=== PATIENT | female | born 1965 | race Caucasian/White ===

== ENCOUNTER 2017-05-13 05:57 | Day surgery (SDC) | payer BC ==
[2017-05-13] MEDS ORDERED: Ondansetron 4 MG/2 ML SDV IVPUSH PRN (06:47)
[2017-05-13] MEDS ORDERED: Ondansetron 4 MG/2 ML SDV ONE ×2 (06:52→08:35)
[2017-05-13] MEDS: Ondansetron 4 MG/2 ML SDV IVPUSH PRN ×2 (06:54→22:00)
[2017-05-13] MEDS ORDERED: Bupivacaine 0.5%/EPINEPHrine 1:200,000 50 ML MDV ONE (06:58)
[2017-05-13] MEDS ORDERED: HYDROmorphone/Normal Saline 15 MG/30 ML PCA IV PRN (07:00)
[2017-05-13] MEDS ORDERED: Scopolamine 1.5 MG Transdermal Patch TOP ONE (07:00)
[2017-05-13] MEDS ORDERED: Dextrose 5%-Lactated Ringers 1,000 ML IV SCH (07:00)
[2017-05-13] MEDS ORDERED: Levofloxacin/Dextrose 5%-Water 500 MG in Premix Bag 1 BAG IV ONE (07:00)
[2017-05-13] MEDS ORDERED: Naloxone 0.4 MG/ML SDV IV PRN (07:00)
[2017-05-13] MEDS ORDERED: Rocuronium 50 MG/5 ML Vial ONE (08:35)
[2017-05-13] MEDS ORDERED: Glycopyrrolate 0.2 MG/ML 5 ML MDV ONE (08:35)
[2017-05-13] MEDS ORDERED: Succinylcholine 200 MG/10 ML MDV ONE (08:35)
[2017-05-13] MEDS ORDERED: Neostigmine Methylsulfate 1 MG/ML 5 ML Syringe ONE (08:35)
[2017-05-13] MEDS ORDERED: Propofol 200 MG/20 ML SDV ONE (08:35)
[2017-05-13] MEDS ORDERED: Ketorolac 60 MG/2 ML SDV ONE (08:35)
[2017-05-13] MEDS ORDERED: fentaNYL 100 MCG/2 ML SDV ONE ×2 (08:36→09:29)
[2017-05-13] MEDS ORDERED: Midazolam 1 MG/ML 2 ML SDV ONE (08:36)
[2017-05-13] MEDS ORDERED: Lidocaine 1% 2 ML ONE (08:36)
[2017-05-13] MEDS ORDERED: Metoclopramide 10 MG/2 ML SDV IVPUSH ONE (10:26)
[2017-05-13] MEDS ORDERED: hydrOXYzine HCl 100 MG/2 ML SDV IM ONE (10:29)
[2017-05-13] MEDS ORDERED: Pantoprazole 40 MG Vial IV SCH (13:00)
[2017-05-13] MEDS: VERIFY SCOP PATCH TOP SCH (13:15)
[2017-05-13] MEDS: Acetaminophen/HYDROcodone 325-5 MG Tab PO PRN ×2 (17:46→22:00)
[2017-05-13] MEDS ORDERED: Ondansetron 4 MG Tab.DIS PO PRN (22:05)
[2017-05-14] MEDS: Acetaminophen/HYDROcodone 325-5 MG Tab PO PRN ×2 (02:33→07:07)
[2017-05-14] MEDS ORDERED: Levofloxacin/Dextrose 5%-Water 500 MG in Premix Bag 1 BAG IV ONE (06:00)
[2017-05-14 07:03] VITALS: BP 124/74
[2017-05-14] MEDS ORDERED: Levofloxacin 500 MG Tab PO SCH (07:30)
[2017-05-14] MEDS: VERIFY SCOP PATCH TOP SCH (08:37)
--- NOTE | 2017-05-15 10:53 | DISCH ---
FINAL DIAGNOSES: 1. Biliary dyskinesia. 2. Umbilical hernia. 3. Incisional hernia. 4. Hyperlipidemia. OPERATIVE PROCEDURE: This was done on 05/13/2017, diagnostic laparoscopy with: 1. Laparoscopic cholecystectomy. 2. Umbilical hernia repair. 3. Reinforcement of the deserosalized portion of the duodenum. HOSPITAL COURSE: This is a 51-year-old female presenting with ongoing biliary colic type symptoms. The CCK stimulated HIDA scan was obtained, which showed a somewhat below normal ejection fraction, along with CCK causing a fairly exact reproduction of her pain. Given this, she underwent a laparoscopic cholecystectomy. The gallbladder was noted to have some adherence to the duodenum, and this was reinforced with some fibrin sealant after takedown of those adhesions. Otherwise, the gallbladder had some sludge within it, as well as gross cholesterolosis. The patient had an umbilical hernia, which was present and was repaired concurrently. There was a larger incisional hernia that would require a mesh-type repair, and given the open gallbladder case, this was deferred. Otherwise, the patient is tolerating diet. She had a little bit of nausea, which was treated with some Zofran. She will be discharged home today. We will continue her home medications plus [place] 5/325 mg 1 to 2 tabs q.4 hours p.r.n. pain, #50; Zofran 4 mg ODT q.4 hours p.r.n. nausea, #20 with one refill. Follow up with Dr. Ma at the [facility] on 05/24/2017.
--- NOTE | 2017-05-15 13:47 | OR ---
DATE OF PROCEDURE: 05/13/2017 PREOPERATIVE DIAGNOSIS: Biliary dyskinesia. POSTOPERATIVE DIAGNOSES: 1. Biliary dyskinesia. 2. Umbilical hernia. 3. Duodenum adherent to gallbladder neck. OPERATIVE PROCEDURES: Diagnostic laparoscopy with: 1. Laparoscopic cholecystectomy (08739). 2. Laparoscopic umbilical hernia repair (46884). 3. Closure of deserosalized portion of duodenum (59277). ANESTHESIA: General. INDICATIONS FOR PROCEDURE: This is a 51-year-old female presenting with recurrent episodes of symptoms suggestive of biliary colic. As part of the workup, the patient underwent a CCK- stimulated HIDA scan that showed a somewhat below-normal ejection fraction, along with reproduction of the patient's symptoms with the CCK injection. Given this, she is to undergo a cholecystectomy. Potential risks of the procedure including bleeding, infection, injury to underlying viscera, possible persistent symptoms postoperatively were all reviewed, and the patient wishes to proceed. DETAILS OF PROCEDURE: The patient was taken to the operating room, and after general endotracheal anesthesia was induced, the abdomen was prepped and draped. Beginning in the right lower mid abdomen, a transverse incision was made and the peritoneal cavity entered under direct vision with an Optiview trocar. The patient was noted to have a previous upper midline incision, so the midline approach in terms of entrance into the abdomen was avoided. Upon entering the peritoneal cavity, the patient was noted to have quite a bit in the way of adhesions in the midline between the omentum. She was noted to have an umbilical hernia as well as a somewhat larger incisional hernia located in the lower aspect of the upper midline incision. Following this, 12 mm trocars were placed in the epigastrium and right mid abdomen after takedown of some adhesions obscuring the upper right abdomen. The gallbladder was noted to be quite thickened and distended. As one dissected down on the gallbladder with Harmonic scalpel, it became evident that the gallbladder neck was densely adherent to the duodenum, likely related to chronic inflammatory changes. This was gradually dissected free. Roughly 1 cm segment of duodenum was deserosalized during the course of that dissection. As one dissected further down, the gallbladder neck/cystic duct junction became well delineated, as was the cystic artery. Both structures were clipped 3 times proximally and once distally and divided. The gallbladder was then dissected off the gallbladder bed using Harmonic scalpel. Following this, the gallbladder was removed through the epigastric site. It was inspected. Small amount of sludge was present, along with cholesterolosis of the gallbladder mucosa visualized upon opening the gallbladder. The area of deserosalization of the duodenum was then closed with a hizeud-ry-jergh stitch of 3-0 Vicryl seromuscular stitch and then reinforced with 4 mL of fibrin sealant followed by an omental patch being placed over the area of the deserosalization and fibrin sealant placement. Attention was then taken to the umbilical hernia. The hernia was reduced by external pressure, and the fatty and peritoneal tissue occupying the hernia was then excised using Harmonic scalpel. A small transverse incision overlying the umbilicus was then made and cone placed for the endoscopic suture closure device. This was then closed with a total of 3 Vicryl sutures placed with closure in the transverse orientation. Once these were in place, the cone was removed and the sutures subsequently tied, thus closing the hernia. At this point, no further problems were noted. Drain was not felt to be necessary. Trocars were sequentially removed and fascia at the 12 mm sites were each closed with 0 Vicryl stitch at the fascia level and skin with a 4-0 Vicryl skin stitch. Dressing was applied. The patient was taken to the recovery room in a satisfactory condition. Antonio Ma MD /[id number]
== END 2017-05-14 09:45 | disposition home or self-care (01) ==
LOC: JP.SDS 05:57 → JP.2SS 10:00 → JP.SDS 05-14 09:45
PROVIDERS: ATTEND Surgery
DX: K81.1 Chronic cholecystitis (principal); K42.9 Umbilical hernia without obstruction or gangrene; K21.9 Gastro-esophageal reflux disease without esophagitis; E78.5 Hyperlipidemia, unspecified; E55.9 Vitamin D deficiency, unspecified; F43.23 Adjustment disorder with mixed anxiety and depressed mood; E66.9 Obesity, unspecified; Z88.1 Allergy status to other antibiotic agents; Z90.49 Acquired absence of other specified parts of digestive tract; Z98.890 Other specified postprocedural states; Z68.30 Body mass index [BMI] 30.0-30.9, adult; Z90.710 Acquired absence of both cervix and uterus; Z98.51 Tubal ligation status; Z79.82 Long term (current) use of aspirin; Z79.899 Other long term (current) drug therapy
CPT/HCPCS: 36415; 44602; 47562; 49652; 82247; 84075; 85027; 88304; A9270; C9113; J0131; J0330; J1170; J1885; J1956; J2250; J2405; J2704; J2710; J2765; J3010; J3410; J7042

== ENCOUNTER 2019-06-25 11:04 | Emergency (ER) | payer BC, OTHER ==
[2019-06-25] MEDS ORDERED: fentaNYL 100 MCG/2 ML SDV NASBOTH ONE (11:10)
[2019-06-25 11:19] VITALS: BP 144/86; PULSE 83
--- NOTE | 2019-06-25 11:23 | EDM.PDOC ---
ED HPI GENERAL MEDICAL PROBLEM - General Chief Complaint: Lower Extremity Injury/Pain Stated Complaint: FELL AND HURT RT KNEE Time Seen by Provider: 06/25/19 11:18 Source of Information: Reports: Patient, RN Notes Reviewed History Limitations: Reports: No Limitations - History of Present Illness INITIAL COMMENTS - FREE TEXT/NARRATIVE: 53-year-old female presents emergency department today following a fall at work she believes she just tripped there was no obstruction and no wet floor lost her balance and landed on her right knee, she is in significant pain and cannot bear weight Right Knee Pain Score (Numeric/FACES): 10 - Related Data Allergies Allergy/AdvReac Type Severity Reaction Status Date / Time erythromycin base Allergy Severe Anaphylactic Verified 06/25/19 11:07 [Erythromycin Base] Shock cefotetan Allergy Rash Verified 06/25/19 11:07 doxycycline Allergy Liver Verified 06/25/19 11:07 Problems Home Meds: Home Meds Cholecalciferol (Vitamin D3) [Vitamin D] 5,000 unit PO DAILY 12/17/14 [History] Vitamin B Complex [B Complex] 1 each PO DAILY 12/17/14 [History] Past Medical History Cardiovascular History: Reports: Heart Murmur Genitourinary History: Reports: Pyelonephritis Musculoskeletal History: Reports: Fracture Other Musculoskeletal History: fx R ankle - Infectious Disease History Infectious Disease History: Reports: Chicken Pox, Influenza, Measles - Past Surgical History Head Surgeries/Procedures: Reports: None Other GI Surgeries/Procedures: Lap Jung Female Surgical History: Reports: Hysterectomy Other Musculoskeletal Surgeries/Procedures:: R index finger pinning, temporary pin removed ` Social & Family History - Family History Cardiac: Reports: Hypertension Other Family History: diabetis father and brother - Tobacco Use Smoking Status *Q: Never Smoker Second Hand Smoke Exposure: No - Caffeine Use Caffeine Use: Reports: Soda - Alcohol Use Days Per Week of Alcohol Use: 2 Number of Drinks Per Day: 2 Total Drinks Per Week: 4 - Recreational Drug Use Recreational Drug Use: No Review of Systems - Review of Systems Review Of Systems: See Below Constitutional: Reports: No Symptoms Musculoskeletal: Reports: Joint Pain (Knee pain right) Skin: Reports: Bruising ED EXAM, GENERAL - Physical Exam Exam: See Below Free Text/Narrative:: examination the right knee I do appreciate some bruising over the patella very tender to the touch Exam Limited By: No Limitations General Appearance: Alert, Mild Distress Respiratory/Chest: No Respiratory Distress Course - Vital Signs Last Recorded V/S: Last Vital Signs Temp 96.4 F 06/25/19 11:19 Pulse 83 06/25/19 11:19 Resp 16 06/25/19 11:19 BP 144/86 H 06/25/19 11:19 Pulse Ox 96 06/25/19 11:19 - Orders/Labs/Meds Meds: Medications Discontinued Medications Generic Name Dose Route Start Last Admin Trade Name Rufino PRN Reason Stop Dose Admin Fentanyl 50 mcg 06/25/19 11:10 06/25/19 11:14 Sublimaze NASBOTH 06/25/19 11:11 50 mcg ONETIME ONE Administration Departure - Departure Time of Disposition: 12:34 Disposition: Home, Self-Care 01 Condition: Fair Clinical Impression: Contusion of right knee Qualifiers: Encounter type: initial encounter Qualified Code(s): S80.01XA - Contusion of right knee, initial encounter - Discharge Information Instructions: Contusion, [id number] Referrals: PCP,None [Primary Care Provider] - Forms: ED Department Discharge Additional Instructions: Continue to use ice and ibuprofen as needed for pain control, Please followup with your primary care provider in 3-5 days if not better, please call return to the emergency department with worsening of symptoms. - Assessment/Plan Plan: Assessment Acuity = acute Site and laterality = right knee contusion Etiology = secondary to a fall Manifestations = pain Location of injury = work Lab values = x-ray reveals no acute fracture Plan She had good relief with fentanyl provided in the emergency department recommend rest ice compression ibuprofen as needed for pain control follow-up primary care 3-5 days if no improvement This note was dictated using [employer] recognition software please call with any questions on syntax or grammar.
--- NOTE | 2019-06-25 12:29 | CRLCR ---
INDICATION: Trauma; pain right knee. COMPARISON: None. TECHNIQUE: Three views study right knee. FINDINGS: No evidence of fracture or dislocation. No bone or soft tissue abnormalities. No evidence of suprapatellar synovial effusion. IMPRESSION: Negative radiographic examination of the right knee. Dictated by Nicci Aviles MD @ Jun 25 2019 12:26PM Signed by Dr. Nicci Aviles @ Jun 25 2019 12:27PM
== END 2019-06-25 12:44 | disposition home or self-care (01) ==
LOC: JP.ED 11:04
DX: S80.01XA Contusion of right knee, initial encounter (principal); Z88.1 Allergy status to other antibiotic agents; Z88.8 Allergy status to other drugs, medicaments and biological substances; W01.0XXA Fall on same level from slipping, tripping and stumbling without subsequent striking against object, initial encounter; Y99.0 Civilian activity done for income or pay
CPT/HCPCS: 73562; 99283; J3010

== ENCOUNTER 2020-09-19 19:15 | Emergency (ER) | payer BC ==
[2020-09-19] MEDS ORDERED: Ibuprofen 600 MG Tab PO ONE (19:31)
[2020-09-19] MEDS ORDERED: Ketorolac 60 MG/2 ML SDV IM ONE (19:36)
--- NOTE | 2020-09-19 19:36 | EDM.PDOC ---
ED HPI GENERAL MEDICAL PROBLEM - General Chief Complaint: Lower Extremity Injury/Pain Stated Complaint: RT ANKLE Time Seen by Provider: 09/19/20 19:25 Source of Information: Reports: Patient, Family History Limitations: Reports: No Limitations - History of Present Illness INITIAL COMMENTS - FREE TEXT/NARRATIVE: 55-year-old female turned her ankle on the ice within the last hour sustaining a painful injury to the lateral aspect of the right ankle. It is swollen, she heard a crack, and is unable to bear weight. No other injury. Onset: Sudden Duration: Hour(s): (Within the last hour) Location: Reports: Lower Extremity, Right Associated Symptoms: Reports: No Other Symptoms - Related Data Allergies Allergy/AdvReac Type Severity Reaction Status Date / Time erythromycin base Allergy Severe Anaphylactic Verified 09/19/20 19:31 [Erythromycin Base] Shock cefotetan Allergy Rash Verified 09/19/20 19:31 doxycycline Allergy Liver Verified 09/19/20 19:31 Problems Home Meds: Home Meds Cholecalciferol (Vitamin D3) [Vitamin D] 5,000 unit PO DAILY 12/17/14 [History] Vitamin B Complex [B Complex] 1 each PO DAILY 12/17/14 [History] Past Medical History HEENT History: Reports: Impaired Vision Cardiovascular History: Reports: Heart Murmur Gastrointestinal History: Reports: None Genitourinary History: Reports: Pyelonephritis CARE DIRECTOR History: Reports: Musculoskeletal History: Reports: Fracture Other Musculoskeletal History: fx R ankle - Infectious Disease History Infectious Disease History: Reports: Chicken Pox, Influenza, Measles - Past Surgical History Head Surgeries/Procedures: Reports: None Cardiovascular Surgical History: Reports: None Other GI Surgeries/Procedures: Lap Jung Female Surgical History: Reports: Hysterectomy Other Musculoskeletal Surgeries/Procedures:: R index finger pinning, temporary pin removed ` Dermatological Surgical History: Reports: None Social & Family History - Family History Cardiac: Reports: Hypertension Other Family History: diabetis father and brother - Tobacco Use Tobacco Use Status *Q: Never Tobacco User - Caffeine Use Caffeine Use: Reports: Soda Review of Systems - Review of Systems Review Of Systems: See Below Constitutional: Denies: Fever Respiratory: Denies: Shortness of Breath Skin: Denies: Bruising ED EXAM, GENERAL - Physical Exam Exam: See Below Exam Limited By: No Limitations General Appearance: Alert, Moderate Distress Respiratory/Chest: No Respiratory Distress Extremities: Other (Exam is otherwise limited to the right lower extremity. She has intense pain to palpation over the distal fibula but no significant deformity or crepitus. There is swelling but no bruising. The medial ankle is nontender) Neurological: Alert, Oriented Psychiatric: Anxious Course - Orders/Labs/Meds Orders: Active Orders 24 hr Category Date Time Status Consult to Orthopedic Clinic [CONS] Routine Cons 09/19/20 20:27 Active DME for Discharge [COMM] Stat Oth 09/19/20 20:16 Ordered Meds: Medications Discontinued Medications Generic Name Dose Route Start Last Admin Trade Name Freq PRN Reason Stop Dose Admin Hydromorphone HCl 1 mg 09/19/20 20:23 09/19/20 20:43 Dilaudid IM 09/19/20 20:24 1 mg ONETIME ONE Administration Ibuprofen 600 mg 09/19/20 19:31 09/19/20 19:39 Motrin PO 09/19/20 19:32 Not Given ONETIME ONE Ketorolac Tromethamine 60 mg 09/19/20 19:36 09/19/20 19:39 Toradol IM 09/19/20 19:37 60 mg ONETIME ONE Administration Ketorolac Tromethamine Confirm 09/19/20 19:37 Toradol Administered 09/19/20 19:38 Dose 60 mg .ROUTE .STK-MED ONE Ondansetron HCl 4 mg 09/19/20 19:53 09/19/20 19:56 Zofran Odt PO 09/19/20 19:54 4 mg ONETIME ONE Administration Ondansetron HCl Confirm 09/19/20 19:53 Zofran Odt Administered 09/19/20 19:54 Dose 4 mg .ROUTE .STK-MED ONE - Re-Assessments/Exams Free Text/Narrative Re-Assessment/Exam: 09/19/20 20:25 Patient was given 30 mg of IM ketorolac and 4 mg of sublingual Zofran and a right ankle x-ray was obtained. This showed a nondisplaced fracture. IMPRESSION: 1. There is a nondisplaced transverse fracture present within the tip of the lateral malleolus. Dictated by Latrell Field MD @ 09/19/2020 8:13:26 PM The above was discussed with Dr. Puckett, she will recheck with him next week. A walking boot was placed, crutches were fitted she was given 10 hydrocodone for extra pain control as well as 1 mg of IM Dilaudid. She was struggling with significant pain even after the ketorolac injection. Departure - Departure Time of Disposition: 20:45 Disposition: Home, Self-Care 01 Clinical Impression: Closed fracture of right distal fibula Qualifiers: Encounter type: initial encounter Fracture morphology: unspecified fracture morphology Qualified Code(s): S82.831A - Other fracture of upper and lower end of right fibula, initial encounter for closed fracture - Discharge Information Instructions: Nondisplaced Fibular Ankle Fracture Treated With Immobilization, Adult Referrals: Monisha Cool RN [Primary Care Provider] - Forms: ED Department Discharge Care Plan Goals: Elevate the foot when able, minimal weightbearing will help. Use crutches for ambulation. A regular dose of ibuprofen will be helpful and add stronger pain medication as directed if needed. Recheck with Dr. Puckett next week - My Orders Last 24 Hours: My Active Orders 09/19/20 20:16 DME for Discharge [COMM] Stat 09/19/20 20:27 Consult to Orthopedic Clinic [CONS] Routine - Assessment/Plan Last 24 Hours: My Active Orders 09/19/20 20:16 DME for Discharge [COMM] Stat 09/19/20 20:27 Consult to Orthopedic Clinic [CONS] Routine
[2020-09-19] MEDS ORDERED: Ketorolac 60 MG/2 ML SDV ONE (19:37)
[2020-09-19] MEDS ORDERED: Ondansetron 4 MG Tab.DIS PO ONE (19:53)
[2020-09-19] MEDS ORDERED: Ondansetron 4 MG Tab.DIS ONE (19:53)
--- NOTE | 2020-09-19 20:15 | CRLCR ---
INDICATION: Ankle injury TECHNIQUE: Ankle radiograph 3 views right COMPARISON: 05/16/2010 FINDINGS: Bone: There is a nondisplaced transverse fracture present within the tip of the lateral malleolus. Remote, healed oblique fracture of the distal fibular diaphysis is noted. Joint: The ankle mortise joint and the visualized hindfoot joints are unremarkable in appearance. No significant ankle effusion is seen. Soft tissue: The Kager fat pad and the Achilles` tendon is normal in appearance. No radiopaque foreign bodies are seen. IMPRESSION: 1. There is a nondisplaced transverse fracture present within the tip of the lateral malleolus. Dictated by Latrell Field MD @ 09/19/2020 8:13:26 PM Dictated by: Latrell Field MD @ 09/19/2020 20:14:39 (Electronically Signed)
[2020-09-19] MEDS ORDERED: HYDROmorphone 1 MG/ML Syringe IM ONE (20:23)
== END 2020-09-19 20:46 | disposition home or self-care (01) ==
LOC: JP.ED 19:15
DX: S82.831A Other fracture of upper and lower end of right fibula, initial encounter for closed fracture (principal); Z88.1 Allergy status to other antibiotic agents; X50.9XXA Other and unspecified overexertion or strenuous movements or postures, initial encounter
CPT/HCPCS: 73610; 96372; 99283; A9270; J1170; J1885

== ENCOUNTER 2021-04-19 00:17 | Emergency (ER) | payer BC ==
[2021-04-19 00:50] VITALS: BP 156/76; PULSE 90
--- NOTE | 2021-04-19 00:52 | EDM.PDOC ---
ED HPI GENERAL MEDICAL PROBLEM - General Chief Complaint: Lower Extremity Injury/Pain Stated Complaint: FELL, HURT LEFT HIP Time Seen by Provider: 04/19/21 00:34 - History of Present Illness INITIAL COMMENTS - FREE TEXT/NARRATIVE: Cici is a 55-year-old female presenting to the ED for evaluation of worsening left hip pain with ambulation. Patient was in her usual state of health when she was walking out of her trailer and fell down the steps after missing the last step landing on her left hip. She initially had some minor pain and continue to ambulate taking ibuprofen for her symptoms. States she was she was more concerned about her left ankle being injured. The patient was sleeping on her left side which she normally does and was awakened in the middle of the night because of increasing left hip pain. She started taking ibuprofen to manage the pain. Over the course of the weekend the hip pain has become much more significant and is not responding to anti-inflammatories. 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 Left Hip Pain Score (Numeric/FACES): 8 - Related Data Allergies Allergy/AdvReac Type Severity Reaction Status Date / Time erythromycin base Allergy Severe Anaphylactic Verified 04/19/21 00:51 [Erythromycin Base] Shock cefotetan Allergy Rash Verified 04/19/21 00:51 doxycycline Allergy Liver Verified 04/19/21 00:51 Problems Home Meds: Home Meds Cholecalciferol (Vitamin D3) [Vitamin D] 5,000 unit PO DAILY 12/17/14 [History] Vitamin B Complex [B Complex] 1 each PO DAILY 12/17/14 [History] methocarbamoL [Methocarbamol] 750 mg PO QID PRN #30 tablet 04/19/21 [Rx] Past Medical History HEENT History: Reports: Impaired Vision Cardiovascular History: Reports: Heart Murmur Gastrointestinal History: Reports: None Genitourinary History: Reports: Pyelonephritis 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: Musculoskeletal History: Reports: Fracture Other Musculoskeletal History: fx R ankle- 09/19/20 - Infectious Disease History Infectious Disease History: Reports: Chicken Pox, Influenza, Measles - Past Surgical History Head Surgeries/Procedures: Reports: None Cardiovascular Surgical History: Reports: None Other GI Surgeries/Procedures: Lap Jung Female Surgical History: Reports: Hysterectomy Other Musculoskeletal Surgeries/Procedures:: R index finger pinning, temporary pin removed ` Dermatological Surgical History: Reports: None Social & Family History - Family History Cardiac: Reports: Hypertension Other Family History: diabetis father and brother - Caffeine Use Caffeine Use: Reports: Coffee Review of Systems - Review of Systems Review Of Systems: See Below Constitutional: Reports: No Symptoms Musculoskeletal: Reports: Joint Pain (Worsening left hip pain) Skin: Reports: No Symptoms Neurological: Reports: No Symptoms ED EXAM, GENERAL - Physical Exam Exam: See Below Exam Limited By: No Limitations General Appearance: Alert, Mild Distress Eye Exam: Bilateral Eye: EOMI, PERRL Head: Atraumatic, Normocephalic Extremities: Limited Range of Motion (Marked reduction in the range of motion of the left hip with flexion to 95 degrees, extension back to 180 degrees, internal rotation of the knee 15 degrees elicits pain, external rotation at the knee 10 to 15 degrees elicits pain. Patient has difficulty moving the left hip on her own.), Other (Focal tenderness to palpation over the greater trochanteric bursa.) Neurological: Alert, Oriented, Normal Cognition, No Motor/Sensory Deficits Psychiatric: Anxious Skin Exam: Warm, Dry, Ecchymosis (Mild ecchymosis in the upper lateral posterior left thigh. Focal tenderness with palpation at this location.) ED JOINT ASPIRATION PROCEDURE - Joint Apsiration/Arthrocentesis Site: Left greater trochanteric bursa Skin prep: Providone-Iodine (Betadine) Joint injection: marcaine, amount: (4ml), other and amount: (Kenalog 40 mg (1 mL)) Dressing: adhesive dressing Complications: No Course - Vital Signs Last Recorded V/S: Last Vital Signs Temp 36.6 C 04/19/21 00:48 Pulse 90 04/19/21 00:48 Resp 16 04/19/21 00:48 BP 156/76 H 04/19/21 00:48 Pulse Ox 95 04/19/21 00:48 - Orders/Labs/Meds Orders: Active Orders 24 hr Category Date Time Status Hip Min 2V or 3V w Pelvis Lt [CR] Stat Exams 04/19/21 00:40 Taken Meds: Medications Discontinued Medications Generic Name Dose Route Start Last Admin Trade Name Freq PRN Reason Stop Dose Admin Bupivacaine HCl 4 ml 04/19/21 02:44 04/19/21 02:56 Bupivacaine 0.5% 10 Ml Sdv INJECT 04/19/21 02:45 4 ml ONETIME ONE Administration Methocarbamol 1,000 mg 04/19/21 02:21 04/19/21 02:28 Methocarbamol 500 Mg Tab PO 04/19/21 02:22 1,000 mg ONETIME ONE Administration Triamcinolone Acetonide 40 mg 04/19/21 02:44 04/19/21 02:56 Triamcinolone Acetonide 40 Mg/Ml 1 Ml Sdv INJECT 04/19/21 02:45 40 mg ONETIME STA Administration - Radiology Interpretation Free Text/Narrative:: I reviewed the three-view x-ray of the hip and pelvis. There is no acute osseous abnormality noted. There is no evidence for fracture. - Re-Assessments/Exams Free Text/Narrative Re-Assessment/Exam: 04/19/21 03:14 Cici likely has sustained a traumatic bursitis from falling onto her left hip. X-rays failed to demonstrate any acute osseous abnormalities. There certainly was not evidence compelling for either hip or pelvis fracture. She has focal tenderness over the greater trochanteric bursa and we discussed treatment options including the use of topical NSAIDs, oral NSAIDs, and steroid injection. Risks and benefits of the steroid injection were discussed and the patient elected to proceed with this. Verbal consent was obtained from the patient. The patient was placed in the right lateral decubitus position with the left side up and the area was exposed. A timeout was taken to ensure we had the proper patient, procedure, and location. The injection site was cleansed thoroughly using but on iodine and a cocktail of bupivacaine 0.5% for mL and Kenalog 40 mg, 1 mL were drawn up into a 5 cc syringe. A 27-gauge 1-1/2 inch needle was then used to instill this into the greater trochanteric bursa. The patient tolerated the procedure well without co mplications. She was observed for 30 minutes for any improvement in her symptoms. 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 If not improving, she may need to see Dr. Puckett. 04/19/21 03:38 rechecked the patient after the injection into the left trochanteric bursa. She is experiencing some improvement in her symptoms. At this time we will let her go home. I encouraged her to use heat packs or heating pad over the area to increase circulation. I am going to send her home with a prescription for methocarbamol that she can fill in the morning for muscle spasm. If not improving in the course of the next day or 2 I would recommend that she follow-up with Dr. Puckett. I be more than happy to put through a referral if it is necessary. At this time she will wait to see if this improves over 24 hours. Indications to return to the ED were discussed and she was discharged in satisfactory condition. Departure - Departure Time of Disposition: 03:39 Disposition: Home, Self-Care 01 Clinical Impression: Acute pain of left hip, Traumatic bursitis - Discharge Information Prescriptions: methocarbamoL [Methocarbamol] 750 mg PO QID PRN #30 tablet PRN Reason: Muscle Spasm - Painful Instructions: Hip Pain, Bursitis, [id number] Referrals: Monisha Cool RN [Primary Care Provider] - Forms: ED Department Discharge Care Plan Goals: I have included a prescription for the methocarbamol 750 mg 4 times a day as needed for muscle spasm or pain. I certainly hope that the injection will continue to improve the pain in the hip. We will let you know if Dr. Arita sees any abnormalities on the x-ray that I may have overlooked. If not improving over the course of the next 2 to 3 days, I recommend that you see Luis Puckett in orthopedics. Continue to take ibuprofen or naproxen as needed for the pain. Sepsis Event Note (ED) - Focused Exam Vital Signs: Vital Signs Temp Pulse Resp BP Pulse Ox 04/19/21 00:48 36.6 C 90 16 156/76 H 95 - Problem List & Annotations (1) Acute pain of left hip SNOMED Code(s): 26056658 Code(s): M25.552 - PAIN IN LEFT HIP Status: Acute Priority: Medium Current Visit: Yes (2) Traumatic bursitis SNOMED Code(s): 145777304, 983539652 Code(s): M71.50 - OTHER BURSITIS, NOT ELSEWHERE CLASSIFIED, UNSPECIFIED SITE Status: Acute Priority: Medium Current Visit: Yes - Problem List Review Problem List Initiated/Reviewed/Updated: Yes - My Orders Last 24 Hours: My Active Orders 04/19/21 00:40 Hip Min 2V or 3V w Pelvis Lt [CR] Stat - Assessment/Plan Last 24 Hours: My Active Orders 04/19/21 00:40 Hip Min 2V or 3V w Pelvis Lt [CR] Stat
[2021-04-19] MEDS ORDERED: Methocarbamol 500 MG Tab PO ONE (02:21)
[2021-04-19] MEDS ORDERED: Bupivacaine 0.5% 10 ML SDV INJECT ONE (02:44)
[2021-04-19] MEDS ORDERED: Triamcinolone Acetonide 40 MG/ML 1 ML SDV INJECT STA (02:44)
--- NOTE | 2021-04-19 12:50 | CR ---
Hip Min 2V or 3V w Pelvis Lt CLINICAL HISTORY: Fall FINDINGS: No fracture or osseous lesion is identified. There is no dislocation. IMPRESSION: Negative
== END 2021-04-19 03:47 | disposition home or self-care (01) ==
LOC: JP.ED 00:17
DX: M70.72 Other bursitis of hip, left hip (principal); Z88.1 Allergy status to other antibiotic agents
CPT/HCPCS: 20610; 73502; 99283; A9270; J3301; J3490